=== PATIENT | female | born 1955 | race American Indian/Alaskan Native ===

== ENCOUNTER 2017-02-01 07:53 | Outpatient (CLI) | payer OTHER ==
--- NOTE | 2017-02-01 14:07 | Ultrasound Report ---
Transabdominal and transvaginal pelvic ultrasound. History: Pelvic pain. Findings: There are 2 masses within the body of the uterus, the largest of which is anterior measuring 2.9 x 2.3 cm. Smaller mass in the posterior body measures 1 cm in diameter. There are no additional focal uterine abnormalities. The overall size of the uterus is 8.9 x 4.1 x 4.0 cm. Endometrium measures 5.6 mm in thickness. The ovaries are unremarkable. There is no fluid within the cul-de-sac. Impression: 2 uterine fibroids are identified.
== END 2017-02-01 07:54 | disposition home or self-care (01) ==
LOC: US 07:53
PROVIDERS: ATTEND Family Medicine Adult Medicine
DX: D25.9 Leiomyoma of uterus, unspecified (principal); R35.0 Frequency of micturition; R10.11 Right upper quadrant pain
CPT/HCPCS: 76830; 76856